=== PATIENT | female | born 2000 ===

== ENCOUNTER 2018-02-24 00:18 | Emergency (ER) | payer MEDICAID ==
[2018-02-24 00:37] VITALS: BP 117/72; PULSE 71; RESP 16; TEMP 98.5; O2SAT 98
--- NOTE | 2018-02-24 01:06 | ED PDOC ---
HPI: Female Pain Time Seen by Provider: 02/24/18 01:04 Chief Complaint (Nursing): Female Genitourinary Chief Complaint (Provider): lower abd pain History Per: Patient (17 y/o female here with abdominal pain x 5 days noted gradual onset unclear association with urination. Patient seen by ob gyn physician assistant. STates she had urine testing done but results are pending. Was given rx for antibiotics but unable to get to pharmacy before closed.) Past Medical History Reviewed: Historical Data, Nursing Documentation, Vital Signs Vital Signs: Last Vital Signs Temp 98.5 F 02/24/18 00:32 Pulse 71 02/24/18 00:32 Resp 16 02/24/18 00:32 BP 117/72 02/24/18 00:32 Pulse Ox 98 02/24/18 00:32 - Family History Family History: States: No Known Family Hx - Home Medications Home Medications: Ambulatory Orders Medication Instructions Recorded Ibuprofen [Motrin] 600 mg PO Q8 PRN #21 tab 02/24/18 - Allergies Allergies/Adverse Reactions: Allergies Allergy/AdvReac Type Severity Reaction Status Date / Time No Known Allergies Allergy Verified 02/24/18 00:37 Review of Systems ROS Statement: Except As Marked, All Systems Reviewed And Found Negative Physical Exam - Reviewed Nursing Documentation Reviewed: Yes Vital Signs Reviewed: Yes - Physical Exam Appears: Positive for: Well, Non-toxic, No Acute Distress Head Exam: Positive for: ATRAUMATIC, NORMAL INSPECTION, NORMOCEPHALIC Skin: Positive for: Normal Color, Warm, DRY Eye Exam: Positive for: EOMI, Normal appearance, PERRL ENT: Positive for: Normal ENT Inspection Neck: Positive for: Normal, Painless ROM Cardiovascular/Chest: Positive for: Regular Rate, Rhythm Respiratory: Positive for: CNT, Normal Breath Sounds Gastrointestinal/Abdominal: Positive for: Normal Exam, Soft Pelvic Exam: Positive for: Discharge (VAGINAL DISCHARGE NOTED.). Negative for: No Cerv. Motion Tender, Tender Adnexa Back: Positive for: Normal Inspection Extremity: Positive for: Normal ROM Neurologic/Psych: Positive for: Alert, Oriented - Laboratory Results Urine POC: Negative - ECG O2 Sat by Pulse Oximetry: 98 - Progress ED Course And Treament: PELVIC US: RIGHT OVARIAN BENIGN ANECHOIC CYST NO EVIDENCE OF OVARIAN TORSION FREE FLUID ADJACENT TO THE LEFT ADNEXA THICKENED ENDOMETRIUM. GENPROBE SENT FOR GC UCX SENT BACTRIM DS 1 TAB PO X 1 DOSE Disposition - Clinical Impression Clinical Impression: Abdominal pain, Ovarian cyst - Patient ED Disposition Is Patient to be Admitted: No - Disposition Disposition: Routine/Home Disposition Time: 05:25 Condition: FAIR Additional Instructions: CONTINUE WITH BACTRIM PRESCRIBED BY YOUR DIVE SUPERINTENDENT Prescriptions: Ibuprofen [Motrin] 600 mg PO Q8 PRN #21 tab PRN Reason: Pain, Moderate (4-7) Instructions: Ovarian Cysts, Acute Abdomen (Belly Pain)
[2018-02-24 02:25] LABS: SQUAMOUS EPITHIAL 9 /hpf (0-5); URINE BACTERIA RARE (<OCC); URINE BILIRUBIN NEGATIVE (NEGATIVE); URINE BLOOD NEGATIVE (NEGATIVE); URINE CLARITY CLOUDY (Clear); URINE COLOR YELLOW (YELLOW); URINE GLUCOSE (UA) NEG (Normal); URINE LEUKOCYTE ESTERASE SMALL Leu/uL (Negative); URINE PROTEIN NEGATIVE (NEGATIVE)
[2018-02-24] MEDS ORDERED: Tmp-Smz 800 mg-160 mg DS Tab PO STA (05:16)
[2018-02-24] MEDS ORDERED: Tmp-Smz 800 mg-160 mg DS Tab ONE (05:37)
--- NOTE | 2018-02-24 11:36 | US ---
Date of service: 02/24/2018 HISTORY: left ovarian tenderness COMPARISON: None available. TECHNIQUE: Grayscale, color Doppler and spectral evaluation the pelvis performed transvaginally FINDINGS: UTERUS: Measures 6.4 x 5.8 x 3.4 cm. Retroverted. Normal in size and appearance. No fibroid or other mass lesion seen. ENDOMETRIUM: Measures 15 mm in diameter. Unremarkable. CERVIX: No cervical abnormality identified. RIGHT OVARY: Measures 3.1 x 2.4 x 2.6 cm. Exophytic cyst measuring 2.1 x 3.0 x 1.9. Normal flow. LEFT OVARY: Measures 3.4 x 2.7 x 1.9 cm. No solid mass. Normal flow. FREE FLUID: Moderate amount of free fluid noted. OTHER FINDINGS: None. IMPRESSION: Right ovarian benign-appearing exophytic 3.0 cm cyst. Moderate amount of free fluid. Unremarkable uterus and left ovary
== END 2018-02-24 05:45 | disposition home or self-care (01) ==
LOC: H.ER 00:18
DX: N83.201 Unspecified ovarian cyst, right side (principal); R10.30 Lower abdominal pain, unspecified